=== PATIENT | male | born 1975 | race African-American/Black ===

== ENCOUNTER 2017-04-24 02:06 | Emergency (ER) | payer SELFPAY ==
[~2017-04-24] VITALS: Ht 182.9 cm; Wt 88.6 kg
[2017-04-24 02:11] VITALS: BP 163/124; PULSE 106; RESP 20; O2SAT 99
[2017-04-24] MEDS ORDERED: 0.9% Sodium Chloride 1,000 ML IV ONE (02:24)
[2017-04-24] MEDS ORDERED: Ondansetron 2 mg/mL 2 mL Inj IVPUSH ONE (02:25)
[2017-04-24 02:56] LABS: BASOPHILS % (AUTO) 0.5 % (0-3); EOSINOPHILS % (AUTO) 9.4 % (0-5); MONOCYTES % (AUTO) 8.9 % (4-12); Mean Corpuscular Hemoglobin 29.4 pg (27.0-35.0); Mean Corpuscular Volume 87.3 fL (81-100); NEUTROPHILS % (AUTO) 38.3 % (40-74); Platelet Count 216 bil/L (150-400)
[2017-04-24 03:23] LABS: Magnesium 2.2 mg/dL (1.6-2.6)
--- NOTE | 2017-04-24 03:28 | ED.REPORT ---
HPI-Abd Pain M Under 38 Date of Service Apr 24, 2017 ED Provider: Markus Echevarria MD A 26 year old male with a history of hypertension presents to the ED complaining of diarrhea. The pt has been experiencing nausea, vomiting and diarrhea for two days. He has been unable to eat normally, stating that anything he eats "goes right through him." The pt denies hematochezia. Nursing Notes Stated Complaint: VOMITING, DIZZYNESS, AND DIARRHEA Chief Complaint: General Complaint Nursing Notes Reviewed: Yes Allergies: Coded Allergies: No Known Allergies (Verified Allergy, Unknown, 06/05/14) Scheduled PRN Ondansetron ODT (Ondansetron ODT) 8 Mg Tab.rapdis 8 MG PO QID PRN PRN For Nausea General Time Seen by MD: 02:24 Chief Complaint Other (Diarrhea) Hx Obtained From: Patient Arrived By: Walk-in Sudden in Onset?: No Onset Occurred: 2 days ago Symptom Duration: Since onset Recent Healthcare: No recent doctor visit, No recent hospitalization Similar Sx Previous: No Past Medical History Past Medical History Reports: Hypertension Past Surgical History none reported Smoking History Unknown if Ever Smoker Social History Drug Use: THC Ambulatory Status Independent Review of Systems Respiratory: Denies: Non-productive cough, Shortness of breath Cardiovascular: Denies: Chest pain GI: Reports: Diarrhea, Nausea, Vomiting, Denies: Hematochezia Musculoskeletal: Denies: Back pain, Neck pain Complete sys rev & neg: except as marked. Physical Exam Initial Vital Signs Vital Signs (First) Date Time Temp Pulse Resp B/P Pulse Ox O2 Delivery O2 Flow Rate FiO2 04/24/17 02:11 36.7 106 20 163/124 99 Room Air Initial VS: Reviewed General/Constitutional: Awake, Alert Respiratory / Chest: Atraumatic, Breath sounds NL, Breath sounds = bilat, No respiratory distress Cardiovascular: Heart rate NL, Regular rhythm, Heart sounds NL Abdomen: Atraumatic, Soft, Non-tender, BS normoactive Back: Atraumatic, Full range of motion Head / Eyes: Atraumatic, Normocephalic, PERRL, EOMI ENT: Atraumatic, Airway patent, Mucous membranes moist Neurologic: Oriented X3, Speech NL, No motor deficits, No sensory deficits Neck: Atraumatic, Supple, Full range of motion Upper Extremity / MS: Atraumatic, Full range of motion Lower Extremity / Pelvis / MS: Atraumatic, Full range of motion Skin: Atraumatic, Color NL, No rash, Warm, Dry Psychiatric: Affect NL, Mood NL Interpretation & Diagnostics Lab Results Interpretation Result Diagram: 04/24/17 0248 04/24/17 0248 Test 04/24/17 02:48 White Blood Count 5.9th/mm3 (3.8-10.1) Red Blood Count 4.90mil/mm3 (4.40-5.80) Hemoglobin 14.4g/dL (13.8-17.2) Hematocrit 42.8% (41.0-50.0) Mean Corpuscular Volume 87.3fL (81-100) Mean Corpuscular Hemoglobin 29.4pg (27.0-35.0) Mean Corpuscular Hemoglobin Concent 33.6% (32.0-37.0) Red Cell Distribution Width 13.9% (12.3-15.4) Platelet Count 216bil/L (150-400) Neutrophils (%) (Auto) 38.3% (40-74) Lymphocytes (%) (Auto) 42.9% (14-46) Monocytes (%) (Auto) 8.9% (4-12) Eosinophils (%) (Auto) 9.4% (0-5) Basophils (%) (Auto) 0.5% (0-3) Sodium Level 142mEq/L (134-144) Potassium Level 4.2mEq/L (3.5-5.2) Chloride Level 103mEq/L (97-108) Carbon Dioxide Level 26mmol/L (18-29) Blood Urea Nitrogen 10mg/dL (6-20) Creatinine 1.15mg/dL (0.76-1.27) Estimat Glomerular Filtration Rate 80mL/min (>59) Glucose Level 96mg/dL (60-99) Calcium Level 9.7mg/dL (8.5-10.1) Magnesium Level 2.2mg/dL (1.6-2.6) Total Bilirubin 0.9mg/dL (0.0-1.2) Aspartate Amino Transf (AST/SGOT) 25U/L (0-50) Alanine Aminotransferase (ALT/SGPT) 24U/L (0-44) Alkaline Phosphatase 78U/L (25-150) Total Protein 7.0g/dL (6.4-8.4) Albumin 4.3g/dL (3.4-5.0) Re-Eval/Medical Decision Med Decision/Clinical Course 41-year-old with a benign history presents with three days of diarrhea. He is unable produce any diarrhea here despite his story of eight loose bowel movements in the past few hours. Hydrated here and nausea control Zofran. Home with Zofran when necessary. Prompt return of bloody diarrhea or vomiting noted. Clear fluid progressive diet. Source of Hx: Old records Re-Evaluation/Progress : Time of Eval: 04:55 Patient Status: Condition improved Re-Evaluation/Progress Note: Pt rechecked, who is comfortable. The diagnosis and plan for discharge are discussed. The pt understands and agrees with the plan. All questions are addressed at this time. Counseled Regarding: Diagnosis, Lab results, Need for follow-up, When/why to return to ED Patient Discharge & Departure Primary Impression: Diarrhea Diarrhea type: unspecified type Qualified Code: R19.7 - Diarrhea, unspecified Additional Impression: Nausea & vomiting Vomiting type: unspecified Vomiting Intractability: non-intractable Qualified Code: R11.2 - Nausea with vomiting, unspecified Disposition: Home Discharge Condition All VS Reviewed: Yes Condition: Stable Patient Instructions: Acute Diarrhea (ED), Acute Nausea and Vomiting (ED), Gastroenteritis (ED) Additional Instructions: Drink clear fluids, such as Gatorade or Powerade to maintain hydration and replace your electrolytes. Advance her diet slowly over the next two or three days. Avoid fats, meats, milk. Zofran as needed for nausea, up to four times daily. Return if any immediate issues over the weekend, critically blood in your diarrhea blood in vomit, or other new symptoms of concern. Referrals: [facility] Scribe Attestation Portions of this note were transcribed by Reynold Mosley. I, Dr. Echevarria personally performed the history, physical exam and medical decision-making; I reviewed and confirmed the accuracy of the information in the transcribed note. copies to: [facility] Markus Echevarria MD Apr 24, 2017 03:28 REYNOLD MOSLEY Apr 24, 2017 03:32
[2017-04-24] MEDS ORDERED: ONDA8TAB10 PO (05:00)
[2017-04-24 05:40] VITALS: BP 144/96; PULSE 66; RESP 18; O2SAT 97
== END 2017-04-24 05:35 | disposition home or self-care (01) ==
LOC: EDUNIT# 02:06 → SED 02:06
DX: R19.7 Diarrhea, unspecified (principal); R11.2 Nausea with vomiting, unspecified; I10 Essential (primary) hypertension
CPT/HCPCS: 36415; 80053; 83735; 85025; 96361; 96374; 99284; J2405; J7030